=== PATIENT | female | born 1970 | race Hispanic/Latino ===

== ENCOUNTER 2023-03-16 12:48 | Emergency (ER) | payer OTHER ==
[2023-03-16] MEDS ORDERED: Acetaminophen 500 MG TAB ONE (13:16)
[2023-03-16] MEDS ORDERED: Ketorolac Tromethamine 30 MG/ML VIAL ONE (13:16)
[2023-03-16] MEDS ORDERED: diphenhydrAMINE 50 MG/ML VIAL ONE (13:16)
[2023-03-16] MEDS ORDERED: Metoclopramide HCl 10 MG/2 ML VIAL ONE (13:16)
[2023-03-16 14:06] LABS: Amphetamine Not Detected (NotDetected); Barbiturates Screen Not Detected (NotDetected); Benzodiazepine Screen Detected (NotDetected); Cocaine Metabolite Screen Not Detected (NotDetected); Methadone Not Detected (NotDetected); Methamphetamine Not Detected (NotDetected); Opiate Screen Not Detected (NotDetected); Oxycodone Screen Not Detected (NotDetected); Phencyclidine (PCP) Not Detected (NotDetected); THC/Cannabinoid Screen Detected (NotDetected); Tricyclic Screen Not Detected (NotDetected)
== END 2023-03-16 14:19 | disposition home or self-care (01) ==
LOC: BURERS 12:48
DX: R51.9 Headache, unspecified (principal); I10 Essential (primary) hypertension
CPT/HCPCS: 80306; 96365; 96375; J1200; J1885; J2765